=== PATIENT | female | born 1970 | race Hispanic/Latino ===

== ENCOUNTER 2021-10-30 18:39 | Emergency (ER) | payer SELFPAY ==
[2021-10-30] VITALS (22 sets, daily range): BP systolic 157–205; BP diastolic 76–103
[~2021-10-30] VITALS: Ht 162.6 cm; Wt 79.5 kg
[2021-10-30] MEDS ORDERED: LOSARTAN POTASS50 MG PO (18:53)
[2021-10-30 19:22] LABS: HEMATOCRIT 37.8 % (37.0-47.0); HEMOGLOBIN 12.3 g/dl (12.0-16.0); IMMATURE GRANULOCYTES 0.3 % (0.0-5.0); MEAN CELL VOLUME 89.4 fL CALC (80.0-100.0); MEAN CORPUSCULAR HGB 29.1 pG CALC (26.0-32.0); MEAN CORPUSCULAR HGB CONC 32.5 g/dL CAL (32.0-36.0); NEUT# 3.64 thou/uL (2.00-7.15); RED BLOOD COUNT 4.23 mill/uL (4.20-5.60); RED CELL DISTRI WIDTH 12.5 % (11.5-15.5)
[2021-10-30 19:37] LABS: ALBUMIN 4.3 g/dL (3.2-5.0); ALKALINE PHOSPHATASE 76 u/l (38-126); BILIRUBIN, TOTAL 0.2 mg/dL (0.0-1.4); BUN 14 mg/dL (7-17); BUN/CREATININE RATIO 34 (12-20 (CALC)); CARBON DIOXIDE 21 mmol/l (22-30); CHLORIDE 109 mmol/l (95-108); CREATININE 0.4 mg/dL (0.5-1.0); GFR FOR AFR.AMER. > 60 ML/MIN (>=60 (CALC)); GFR OTHER RACES > 60 ML/MIN (>=60 (CALC)); SGOT/AST 33 u/l (14-36); SODIUM 139 mmol/l (137-146); TOTAL PROTEIN 7.9 g/dL (6.3-8.2)
[2021-10-30 19:39] LABS: ANION GAP 12 (6-22 (CALC)); POTASSIUM 3.4 mmol/l (3.5-5.1)
[2021-10-30] MEDS ORDERED: ULTRAM50 M1 PO (20:41)
== END 2021-10-30 21:21 | disposition home or self-care (01) | DRG 90 ==
LOC: ED 18:39
PROVIDERS: Family Medicine
DX: S06.0X1A Concussion with loss of consciousness of 30 minutes or less, initial encounter (principal); S00.93XA Contusion of unspecified part of head, initial encounter; I10 Essential (primary) hypertension; Y04.2XXA Assault by strike against or bumped into by another person, initial encounter; Y93.89 Activity, other specified; Y92.89 Other specified places as the place of occurrence of the external cause; Y99.0 Civilian activity done for income or pay

== ENCOUNTER 2022-04-04 22:08 | Emergency (ER) | payer SELFPAY ==
[~2022-04-04] VITALS: Ht 162.6 cm; Wt 70.0 kg
[~2022-04-04 22:08] MED LIST: LOSARTAN POTASS50 MG PO; ULTRAM50 M1 PO
[2022-04-04 22:33] LABS: BASO% 0.3 % (0-3); EOS% 0.9 % (0-8); HEMATOCRIT 45.7 % (37.0-47.0); HEMOGLOBIN 14.5 g/dl (12.0-16.0); IMMATURE GRANULOCYTES 0.3 % (0.0-5.0); LYMPH% 39.9 % (15-41); MEAN CELL VOLUME 89.6 fL CALC (80.0-100.0); MEAN CORPUSCULAR HGB 28.4 pG CALC (26.0-32.0); MEAN CORPUSCULAR HGB CONC 31.7 g/dL CAL (32.0-36.0); MONO% 7.7 % (2-13); NEUT# 3.49 thou/uL (2.00-7.15); NEUT% 50.9 % (42-76); RED BLOOD COUNT 5.1 mill/uL (4.20-5.60); RED CELL DISTRI WIDTH 12.7 % (11.5-15.5)
[2022-04-04 22:47] LABS: ALBUMIN 5.1 g/dL (3.2-5.0); ALKALINE PHOSPHATASE 89 u/l (38-126); ANION GAP 15 (6-22 (CALC)); BILIRUBIN, TOTAL 0.4 mg/dL (0.02-1.3); BUN 12 mg/dL (7-17); BUN/CREATININE RATIO 20 (12-20 (CALC)); CARBON DIOXIDE 23 mmol/l (22-30); CHLORIDE 108 mmol/l (95-108); CREATININE 0.6 mg/dL (0.5-1.0); GFR FOR AFR.AMER. > 60 ML/MIN (>=60 (CALC)); GFR OTHER RACES > 60 ML/MIN (>=60 (CALC)); POTASSIUM 3.7 mmol/l (3.5-5.1); SGOT/AST 27 u/l (14-36); SODIUM 142 mmol/l (137-146); TOTAL PROTEIN 9.2 g/dL (6.3-8.2)
[2022-04-04 23:04] LABS: URINE BILIRUBIN - DIPSTICK NEGATIVE (NEGATIVE); URINE BLOOD DIPSTICK NEGATIVE (NEGATIVE); URINE COLOR YELLOW; URINE GLUCOSE - DIPSTICK NEGATIVE (NEGATIVE); URINE KETONE NEGATIVE (NEGATIVE); URINE LEUK ESTERASE NEGATIVE (NEGATIVE); URINE NITRITE - DIPSTICK NEGATIVE (Negative); URINE PROTEIN - DIPSTICK TRACE mg/dL (NEG-TRACE); URINE UROBILINOGEN - DIPSTICK 0.2 E.U./dL (0.2)
[2022-04-05 03:50] VITALS: BP 149/72
== END 2022-04-05 03:50 | disposition home or self-care (01) | DRG 312 ==
LOC: ED 22:08 → ED-I 22:18 → ED 22:18 → ED-I 04-05 00:30 → ED 04-05 03:50
PROVIDERS: Emergency Medicine
DX: R55 Syncope and collapse (principal); F41.9 Anxiety disorder, unspecified; F32.A Depression, unspecified; I10 Essential (primary) hypertension